=== PATIENT | female | born 1950 | race Native Hawaiian/Other Pacific Islander ===

== ENCOUNTER 2017-05-10 23:54 | Emergency (ER) | payer OTHER ==
[~2017-05-10] VITALS: Ht 160 cm; Wt 73.9 kg
[2017-05-11 01:09] VITALS: BP 142/83; TEMP 97.8
== END 2017-05-11 01:11 | disposition home or self-care (01) ==
LOC: ED 23:54
DX: G89.4 Chronic pain syndrome (principal)
CPT/HCPCS: 96372; 99283; J1100

== ENCOUNTER 2018-04-02 21:12 | Emergency (ER) | payer OTHER ==
[~2018-04-02] VITALS: Ht 160 cm; Wt 68.9 kg
[2018-04-02] MEDS ORDERED: ALPR0.5T24 PO (21:35)
[2018-04-02] MEDS ORDERED: LISI20TA11 PO (21:35)
[2018-04-02] MEDS ORDERED: PHENTERMINE37.5 MG OR (21:36)
[2018-04-02] MEDS ORDERED: METO25TA4 PO (21:38)
[2018-04-02] MEDS ORDERED: ZOCOR80 MG OR (21:39)
[2018-04-02] MEDS ORDERED: IPRATROPIUM/ INH (21:41)
[2018-04-02 22:32] VITALS: BP 128/62; TEMP 99
== END 2018-04-02 22:32 | disposition home or self-care (01) ==
LOC: ED 21:12
DX: M13.812 Other specified arthritis, left shoulder (principal); M13.811 Other specified arthritis, right shoulder; M13.88 Other specified arthritis, other site
CPT/HCPCS: 96372; 99282; J1885

== ENCOUNTER 2018-09-26 01:12 | Emergency (ER) | payer OTHER ==
[~2018-09-26] VITALS: Ht 160 cm; Wt 73.5 kg
[~2018-09-26 01:12] MED LIST: ALPR0.5T24 PO; IPRATROPIUM/ INH; LISI20TA11 PO; METO25TA4 PO; PHENTERMINE37.5 MG OR; ZOCOR80 MG OR
[2018-09-26 04:05] VITALS: BP 136/88; TEMP 98.3
== END 2018-09-26 04:06 | disposition home or self-care (01) ==
LOC: ED 01:12
DX: G43.909 Migraine, unspecified, not intractable, without status migrainosus (principal); Z63.4 Disappearance and death of family member
CPT/HCPCS: 96372; 99283; J2405; J3030

== ENCOUNTER 2019-08-30 15:34 | Emergency (ER) | payer OTHER ==
[~2019-08-30] VITALS: Ht 160 cm; Wt 73.5 kg
[2019-08-30 16:44] LABS: POTASSIUM 3.2 mmol/L (3.6-5.2)
[2019-08-30 17:06] LABS: PLATELET COUNT 270 K/uL (152-353)
[2019-08-30 19:50] VITALS: BP 149/74; TEMP 98.1
== END 2019-08-30 19:50 | disposition home or self-care (01) ==
LOC: ED 15:34
PROVIDERS: Emergency Medicine
DX: R42 Dizziness and giddiness (principal); E87.6 Hypokalemia; W18.39XA Other fall on same level, initial encounter; Y92.89 Other specified places as the place of occurrence of the external cause
CPT/HCPCS: 80053; 81000; 85027; 93005; 96360; 96375; 99284; J1885; J2175; J2405

== ENCOUNTER 2020-07-22 01:04 | Emergency (ER) | payer OTHER ==
[~2020-07-22] VITALS: Ht 160 cm; Wt 73.5 kg
[2020-07-22 02:30] LABS: PLATELET COUNT 306 K/uL (152-353)
[2020-07-22 04:36] VITALS: BP 180/90; TEMP 98.1
== END 2020-07-22 04:36 | disposition home or self-care (01) ==
LOC: ED 01:04
PROVIDERS: Family Medicine
DX: R51 Headache (principal); I10 Essential (primary) hypertension; F17.210 Nicotine dependence, cigarettes, uncomplicated
CPT/HCPCS: 80053; 81000; 85027; 96372; 99283; J1885